=== PATIENT | female | born 1990 | race Caucasian/White ===

== ENCOUNTER 2022-07-02 16:16 | Emergency (ER) | payer SELFPAY ==
[2022-07-02 16:34] VITALS: BP 132/87; PULSE 57; RESP 16; TEMP 36.6; O2SAT 98
[2022-07-02 17:59] LABS: Influenza A QL RT-PCR Negative (Negative); Influenza B QL RT-PCR Negative (Negative); SARS-CoV-2 RNA PCR Negative
[2022-07-02 19:03] VITALS: PULSE 95; RESP 16; TEMP 36.8; O2SAT 98
--- NOTE | 2022-07-02 19:43 | ED.GENADULT ---
HPI - General Adult General Chief complaint: Upper Respiratory Infection Stated complaint: ear pain, neck pain, fever Time Seen by Provider: 07/02/22 19:30 Source: RN notes reviewed History of Present Illness HPI narrative: Patient presents emergency room from home for upper respiratory infection. Patient states symptoms began 4 days ago. States that she has been having bilateral ear pain as well as rhinorrhea sore throat and a nonproductive cough she states subjective fevers yesterday but none today she denies any chest pain shortness of breath abdominal pain nausea vomiting diarrhea or any other symptoms. States that she took Tylenol yesterday but nothing today she denies any chance of Related Data Allergies Allergy/AdvReac Type Severity Reaction Status Date / Time No Known Allergies Allergy Verified 07/02/22 19:03 Review of Systems Review of Systems: Gen.: Report subjective fever Eyes: Denies eye pain or visual change ENT: See HPI Respiratory: Denies shortness of breath reports cough CV: Denies chest pain or palpitations GI: Denies abdominal pain nausea, emesis or diarrhea denies b Musculoskeletal: Denies back pain or muscle pain Neuro: Denies numbness, tingling, weakness or focal weakness Skin: Denies rash Except as documented, all other systems reviewed and negative [facility] Past Medical History Medical History (Updated 07/02/22 @ 20:26 by Tom Mccabe DO) Patient denies significant medical history Social History Social History (Updated 07/02/22 @ 19:44 by Tom Mccabe DO) Smoking status: Never smoker Exam Narrative: APPEARANCE: No acute distress, nontoxic, resting in bed EYES: EOMI HEENT: Normocephalic, atraumatic, TMs clear to station bilaterally, nares patent oral mucosa moist erythema posterior pharynx and bilateral tonsils with white exudate over bilateral tonsils uvula midline no trismus RESPIRATORY: No respiratory distress Clear to auscultation bilaterally with no rhonchi wheezing or rales. CARDIOVASCULAR: Regular rate and rhythm without murmurs rubs or gallops. ABDOMINAL: Soft, nontender, nondistended, no rebound or guarding MUSCULOSKELETAl: Moves all extremities. No clubbing, cyanosis or edema. NEURO: Awake and alert. Following commands, speech normal, no focal deficits SKIN:: Warm, dry. No rashes lesions or abrasions PSYCHIATRIC: Normal affect/mood, Course Course Emergency Course: Discussed with patient results of workup and diagnosis. Discussed need for follow-up with primary care, proper use of medication, and reasons to return to the emergency department. Patient understands and agrees to current treatment plan Vital Signs Vital signs: Vital Signs Temperature 97.8 F 07/02/22 16:34 Pulse Rate 57 L 07/02/22 16:34 Respiratory Rate 16 07/02/22 16:34 Blood Pressure 132/87 07/02/22 16:34 Pulse Oximetry 98 07/02/22 16:34 Oxygen Delivery Room Air 07/02/22 16:34 Temperature 98.2 F 07/02/22 19:03 Pulse Rate 95 07/02/22 19:03 Respiratory Rate 16 07/02/22 19:03 Blood Pressure 132/87 07/02/22 16:34 Pulse Oximetry 98 07/02/22 19:03 Oxygen Delivery Room Air 07/02/22 16:34 Medical Decision Making Vital Signs Vital Signs: Vital Signs Temperature 97.8 F 07/02/22 16:34 Pulse Rate 57 L 07/02/22 16:34 Respiratory Rate 16 07/02/22 16:34 Blood Pressure 132/87 07/02/22 16:34 Pulse Oximetry 98 07/02/22 16:34 Oxygen Delivery Room Air 07/02/22 16:34 Temperature 98.2 F 07/02/22 19:03 Pulse Rate 95 07/02/22 19:03 Respiratory Rate 16 07/02/22 19:03 Blood Pressure 132/87 07/02/22 16:34 Pulse Oximetry 98 07/02/22 19:03 Oxygen Delivery Room Air 07/02/22 16:34 Lab Data Labs: Lab Results 07/02/22 Range/Units 16:40 Influenza A (RT-PCR) Negative (Negative) Influenza B (RT-PCR) Negative (Negative) SARS-CoV-2 RNA (RT-PCR) Negative Strep Screen P
[2022-07-02] MEDS: IBUPROFEN 600 MG TABLET PO (20:03)
== END 2022-07-02 20:52 | disposition home or self-care (01) ==
PROVIDERS: Emergency Medicine; Emergency Provider Emergency Medicine; PCP Family Medicine
DX: J02.0 Streptococcal pharyngitis (principal); Z20.822 Contact with and (suspected) exposure to COVID-19
CPT/HCPCS: 87636; 87880; 99283; A9270

== ENCOUNTER 2023-05-01 00:49 | Emergency (ER) | payer BC, SELFPAY ==
--- NOTE | ~2023-05-01 | XR_ITS ---
XR elbow LT min 3V DATE: 05/01/2023 01:10 INDICATION: Fall down stairs. Pain when straightening elbow. TECHNIQUE: 3 views COMPARISON: None FINDINGS: No fracture or dislocation or joint effusion, periosteal reaction or bone destruction is de tected. IMPRESSION: Negative Reviewed, dictated and finalized at location A. IMPRESSION: Negative
[2023-05-01 00:53] VITALS: BP 118/77; PULSE 102; RESP 16; TEMP 36.4; O2SAT 98
--- NOTE | 2023-05-01 03:47 | PC.NURSE ---
Pt seen getting in to an [employer] and riding away
== END 2023-05-01 04:22 | disposition left against medical advice (07) ==
LOC: ANHED 03:58
PROVIDERS: Emergency Provider Emergency Medicine; PCP Family Medicine
DX: M79.602 Pain in left arm (principal)
CPT/HCPCS: 73080; 99199

== ENCOUNTER 2023-05-03 23:12 | Emergency (ER) | payer BC, SELFPAY ==
[2023-05-03 23:54] VITALS: BP 145/100; PULSE 78; RESP 16; TEMP 36.8; O2SAT 99
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
== END 2023-05-04 01:33 | disposition home or self-care (01) ==
PROVIDERS: Emergency Provider Physician Assistant; PCP Family Medicine
DX: S59.902A Unspecified injury of left elbow, initial encounter (principal); W13.8XXA Fall from, out of or through other building or structure, initial encounter
CPT/HCPCS: 99282; A4565

== ENCOUNTER 2023-11-15 15:47 | Emergency (ER) | payer BC, SELFPAY ==
[2023-11-15 16:02] VITALS: BP 119/86; PULSE 97; RESP 18; TEMP 36.2; O2SAT 100
--- NOTE | 2023-11-15 16:07 | ED.URI ---
HPI - URI/Sore Throat General Chief Complaint: Upper Respiratory Infection Stated Complaint: cough,weak Time Seen by Provider: 11/15/23 15:50 Source: patient Mode of arrival: ambulatory Limitations: no limitations History of Present Illness HPI Narrative: Kellen is a 33-year-old female patient presenting to the clinic today with complaints of cough and weakness x3 days. She reports she feels as though she has no energy. Denies any shortness of breath or chest pain. No fever, chills, or body aches. Cough is nonproductive. Did at home COVID test yesterday and was negative. MD elicited complaint: cough and nasal congestion Related Data Home Medications Medication Instructions Recorded Confirmed No Home Medications 11/15/23 11/15/23 Allergies Allergy/AdvReac Type Severity Reaction Status Date / Time No Known Allergies Allergy Verified 05/04/23 01:04 Review of Systems Review of Systems: Pertinent positives per HPI. Patient denies any fever, chills, rash, headache, visual changes, dizziness, shortness of breath, chest pain, palpitations, nausea, vomiting, diarrhea, constipation, abdominal pain, or any urinary issues. [facility] Past Medical History Medical History Patient denies significant medical history Social History Social History Smoking status: Never smoker Comments At the time of my signature, I reviewed and agree with the nursing past medical, surgical, social, and family history. There is no relevant family history pertinent to the patient complaint. Exam Narrative: General: Well-developed, well nourished, in no apparent distress Head: Normocephalic, atraumatic Eyes: Pupils equally round and reactive to light bilaterally, EOM intact, sclera and conjunctive clear, no discharge, lids normal Ears: TMs intact and clear, ear canals clear, no drainage, grossly hearing normal. Nose: Nares patent, clear nasal discharge, no inflammation, no sinus tenderness. Mouth: Oral pharynx without lesions or masses, good dentition, MMM. Neck: Supple, trachea midline, no enlargement of anterior or posterior cervical nodes, no thyroid masses or goiter palpable. Cardio: Regular rate and rhythm, s1 and s2 normal, no murmur appreciated. Resp: Clear to auscultation bilaterally, no rhonchi, rales, wheezing or rubs Course Course Emergency Course: Portions of this record may have been created with voice recognition software. Level of Care: Express Care Visit Vital Signs Vital signs: Vital signs reviewed MDM - URI/Sore Throat MDM Narrative Medical decision making narrative: At the time of visit patient is resting comfortably on the exam table. Patient appears to be nontoxic. Labs: COVID and influenza testing was performed Plan: Supportive measures were discussed with the patient and they voiced understanding discharge instructions and agrees to treatment plan. Return precautions reviewed Differential Diagnosis Differential diagnosis: Likely upper respiratory infection, otitis media, sinusitis, viral infection, bronchitis, influenza, pharyngitis and other (COVID) Discharge Plan Discharge Clinical Impression: Upper respiratory infection, Acute cough, Acute viral syndrome Patient Disposition: Home, Self-Care Condition: Stable Instructions: Antibiotic Form, Viral Syndrome (ED), Upper Respiratory Infection (ED), Acute Cough (ED), Antitussive/Decongestant/Expectorant (By mouth) Additional Instructions: COVID and influenza testing was negative in the clinic today. I suspect you have URI/acute cough/viral syndrome. May take DayQuil/NyQuil for cold/flu symptoms-take will has a cough expectorant and NyQuil has a cough suppressant If you do not wish to take DayQuil/NyQuil for symptoms he may take Mucinex DM Increase fluids and stay well hydrated Tylenol/motrin for pain/fe
== END 2023-11-15 16:50 | disposition home or self-care (01) ==
PROVIDERS: Emergency Provider Nurse Practitioner Family
DX: J06.9 Acute upper respiratory infection, unspecified (principal); R05.1 Acute cough; B34.9 Viral infection, unspecified; Z20.822 Contact with and (suspected) exposure to COVID-19
CPT/HCPCS: 87426; 87804; 99213; G0463

== ENCOUNTER 2023-12-30 15:12 | Emergency (ER) | payer BC, SELFPAY ==
[2023-12-30 15:13] VITALS: BP 129/92; PULSE 115; RESP 18; TEMP 36.6; O2SAT 97
--- NOTE | 2023-12-30 16:26 | ED.SKABFB ---
HPI - Skin/Abscess/Foreign Bdy General Chief complaint: Skin/Abscess/Foreign Body Stated complaint: near groin abcess Time Seen by Provider: 12/30/23 15:56 History of Present Illness HPI narrative: 33-year-old female presents to the emergency room for evaluation of painful mass in her right groin area this been present for 3 days. 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 Patient states that she has been placing Pred on the area without improvement. Patient denies any discharge from the area. Related Data Allergies Allergy/AdvReac Type Severity Reaction Status Date / Time No Known Allergies Allergy Verified 12/30/23 15:15 Review of Systems Review of Systems: ROS unremarkable except for stated in the HPI PMFSH Past Medical History Medical History Patient denies significant medical history Social History Social History Smoking status: Never smoker Exam Narrative: GENERAL: Well-appearing, well-nourished, no physical limitations, and in no acute distress. HEAD: Normocephalic, atraumatic. EYES: Conjunctivae normal, PERRLA and EOMI. CHEST: Clear to auscultation. No respiratory distress. No wheezes rales or rhonchi. HEART: Regular rate and rhythm. No murmur heard. Normal peripheral pulses. ABDOMEN: Soft, nontender, nondistended, normal active bowel sounds. EXTREMITIES: Normal range of motion. No edema. No clubbing or cyanosis SKIN: 4 cm erythematous indurated mass to right inguinal area, no noted discharge NEURO: No focal deficits. Alert and oriented x3. MAEW. CN's II-XI intact bilaterally, normal gait PSYCH: Cooperative. Normal mood and affect. Course Vital Signs Vital signs: Vital Signs Temperature 36.6 C 12/30/23 15:13 Pulse Rate 115 H 12/30/23 15:13 Respiratory Rate 18 12/30/23 15:13 Blood Pressure 129/92 H 12/30/23 15:13 Pulse Oximetry 97 12/30/23 15:13 Oxygen Delivery Room Air 12/30/23 15:13 Temperature 36.6 C 12/30/23 15:13 Pulse Rate 115 H 12/30/23 15:13 Respiratory Rate 18 12/30/23 15:13 Blood Pressure 129/92 H 12/30/23 15:13 Pulse Oximetry 97 12/30/23 15:13 Oxygen Delivery Room Air 12/30/23 15:13 Discharge Plan Discharge Clinical Impression: Abscess of skin or subcutaneous tissue Patient Disposition: Home, Self-Care Condition: Stable Instructions: Antibiotic Form, Abscess (ED) Prescriptions: New doxycycline hyclate 100 mg capsule 100 mg PO DAILY Qty: 14 0RF Follow-up/Referrals: UNKNOWN,DOCTOR [Primary Care Provider] - Time of Disposition: 16:26
== END 2023-12-30 16:39 | disposition home or self-care (01) ==
PROVIDERS: Emergency Provider Nurse Practitioner Family
DX: L02.214 Cutaneous abscess of groin (principal)
CPT/HCPCS: 99283

== ENCOUNTER 2024-09-15 13:05 | Emergency (ER) | payer BC, SELFPAY ==
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
--- OUTSIDE RECORDS SUMMARY | 2024-09-15 13:08 | XMS_ITS | Referral Summary ---
Author Organization [facility] Address [address] [place] [address] Care Team Providers Care Athletic Monitor Name Role Phone Nicci Bravo MD Primary Care Prov ider Encounters Date Type Department Care Team Description 09/07/2024 Telephone Specialty Care [facility] Hand and Wrist [address] [facility] 4th Floor [address] [place] [address] Haroon Dc Scheduling Appointments 09/06/2024 Orders Only [facility] Orthopaedic Surgery [address] [place] [address] Medical Office Building 1 [address] [place] [address] Anant Norman MD Closed nondisplaced fracture of base of fifth metacarpal bone of right hand with routine healing, subsequent encounter (Primary Dx) 09/06/2024 Orders Only [facility] Orthopaedic Surgery [address] [place] [address] Medical Office Building 1 [address] [place] [address] Anant Norman MD Closed fracture of distal end of right radius with routine healing, unspecified fracture morphology, subsequent encounter (Primary Dx) 08/18/2024 Telephone [facility] Orthopaedic Surgery [address] [facility] 2nd Floor [address] [place] [address] Anant Norman MD 08/17/2024 6:17 PM INSTRUMENTATION TECH - 08/17/2024 10:00 PM INSTRUMENTATION TECH Emergency [facility] Emergency Department 1 [place] [address] Jamil Jones MD Closed fracture of right upper extremity with routine healing, subsequent encounter (Primary Dx) Discharge Disposition: Discharge to home or self care from Last 3 Months Allergies Active Allergy Reactions Criticality Noted Date Comments Methocarbamol Rash Medium 08/17/2024 Active Problems Problem Noted Date Diagnosed Date Subdural hematoma 08/20/2014 Social History Tobacco Use Types Packs/Day Years [...] on file Legal Sex Female 1:19 PM INSTRUMENTATION TECH Gender Identity Not on file Sexual Orientation Not on file Last Filed Vital Signs Vital Sign Reading Time Taken Comments Blood Pressure 139/88 08/17/2024 9:00 PM INSTRUMENTATION TECH Pulse 72 08/17/2024 9:00 PM INSTRUMENTATION TECH Temperature 37.1 ??C (98.8 ??F) 08/17/2024 3:09 PM CS T Respiratory Rate 20 08/17/2024 9:00 PM INSTRUMENTATION TECH Oxygen Saturation 97% 08/17/2024 9:00 PM INSTRUMENTATION TECH Inhaled Oxygen Concentration - - Weight 77.1 kg (170 lb) 08/17/2024 3:09 PM INSTRUMENTATION TECH Height 165.1 cm (5' 5 ) 08/17/2024 3:09 PM INSTRUMENTATION TECH Body Mass Index 28.29 08/17/2024 3:09 PM INSTRUMENTATION TECH Plan of Treatment Not on file Procedures Procedure Name Priority Date/Time Associated Diagnosis Comments XR WRIST RIGHT 2 VIEWS ED 08/17/2024 9:29 PM INSTRUMENTATION TECH XR RADIUS ULNA RIGHT 2 VIEWS ED 08/17/2024 7:00 PM INSTRUMENTATION TECH XR HAND RIGHT 3 OR MORE VIEWS ED 08/17/2024 7:00 PM INSTRUMENTATION TECH from Last 3 Months Results * XR Wrist Right 2 Views (08/17/2024 9:29 PM INSTRUMENTATION TECH) Anatomical Region Laterality Modality Upper Extremities, Wrist Right Compute d Radiography 08/17/2024 10:4 0 PM INSTRUMENTATION TECH Impressions 08/18/2024 9:03 AM INSTRUMENTATION TECH Patient is imaged in a splint which [...] Richard Oleary M.D. Narrative 08/18/2024 9:03 AM INSTRUMENTATION TECH EXAMINATION: XR WRIST RIGHT 2 VIEWS HISTORY: [...] Ulna Right 2 Views (08/17/2024 7:00 PM INSTRUMENTATION TECH) Anatomical Region Laterality Modality Upper Extremities, Forearm Right Compu fer Radiography 08/17/2024 7:11 PM INSTRUMENTATION TECH Impressions 08/17/2024 7:14 PM INSTRUMENTATION TECH 1. ??Mildly displaced intra-articular distal radial metadiaphyseal [...] Kofi Tello M.D. Narrative 08/17/2024 7:14 PM INSTRUMENTATION TECH EXAM: XR RADIUS ULNA RIGHT 2 VIEWS, [...] agrees with it. Electronically signed by: Kofi Eddie Short, M.D. us Prerak Dimitris Gomes MD IMG XR PROCEDURES Kelsie l Result * XR Hand Right 3 or More Views (08/17/2024 7:00 PM INSTRUMENTATION TECH) Anatomical Region Laterality Modality Upper Extremities, Hand Right Computed Radiography 08/17/2024 7:11 PM INSTRUMENTATION TECH Impressions 08/17/2024 7:14 PM INSTRUMENTATION TECH 1. ??Mildly displaced intra-articular distal radial metadiaphyseal [...] Kofi Tello M.D. Narrative 08/17/2024 7:14 PM INSTRUMENTATION TECH EXAM: XR RADIUS ULNA RIGHT 2 VIEWS, [...] l Result from Last 3 Months Insurance [facility] Care Teams Athletic Monitor Relationship Specialty Start Date End Date Nicci Bravo MD PCP - General 02/01/19
[2024-09-15 13:29] VITALS: BP 142/90; PULSE 86; RESP 16; TEMP 36.6; O2SAT 100
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
--- NOTE | 2024-09-15 20:17 | PC.NURSE ---
patient was called and no answer
--- NOTE | 2024-09-15 20:41 | PC.NURSE ---
patient named called to triage with no answer.
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
--- OUTSIDE RECORDS SUMMARY | 2024-09-15 20:45 | XMS_ITS | Referral Summary ---
Author Organization [facility] Address [address] [place] [address] Care Team Providers Care Complaint Supervisor Name Role Phone Nicci Bravo MD Primary Care Prov ider Encounters Date Type Department Care Team Description 09/07/2024 Telephone [facility] Hand and Wrist [address] [place] [address] Haroon Dc Scheduling Appointments 09/06/2024 Orders Only [facility] Orthopaedic Surgery [address] [place] [address] Medical Office Building [address] [place] [address] Anant Norman MD Closed nondisplaced fracture of base of fifth metacarpal bone of right hand with routine healing, subsequent encounter (Primary Dx) 09/06/2024 Orders Only [facility] Orthopaedic Surgery [address] [place] [address] Medical Office Building [address] [place] [address] Anant Norman MD Closed fracture of distal end of right radius with routine healing, unspecified fracture morphology, subsequent encounter (Primary Dx) 08/18/2024 Telephone [facility] Orthopaedic Surgery [address] [facility] 2[address] [place] [address] Anant Norman MD 08/17/2024 6:17 PM AIRCRAFT FUSELAGE FRAMER - 08/17/2024 10:00 PM AIRCRAFT FUSELAGE FRAMER Emergency [facility] Emergency Department [address] [place] [address] Jamil Jones MD Closed fracture of right [...] on file Legal Sex Female 1:19 PM AIRCRAFT FUSELAGE FRAMER Gender Identity Not on file Sexual Orientation Not on file Last Filed Vital Signs Vital Sign Reading Time Taken Comments Blood Pressure 139/88 08/17/2024 9:00 PM AIRCRAFT FUSELAGE FRAMER Pulse 72 08/17/2024 9:00 PM AIRCRAFT FUSELAGE FRAMER Temperature 37.1 ??C (98.8 ??F) 08/17/2024 3:09 PM CS T Respiratory Rate 20 08/17/2024 9:00 PM AIRCRAFT FUSELAGE FRAMER Oxygen Saturation 97% 08/17/2024 9:00 PM AIRCRAFT FUSELAGE FRAMER Inhaled Oxygen Concentration - - Weight 77.1 kg (170 lb) 08/17/2024 3:09 PM AIRCRAFT FUSELAGE FRAMER Height 165.1 cm (5' 5 ) 08/17/2024 3:09 PM AIRCRAFT FUSELAGE FRAMER Body Mass Index 28.29 08/17/2024 3:09 PM AIRCRAFT FUSELAGE FRAMER Plan of Treatment Not on file Procedures Procedure Name Priority Date/Time Associated Diagnosis Comments XR WRIST RIGHT 2 VIEWS ED 08/17/2024 9:29 PM AIRCRAFT FUSELAGE FRAMER XR RADIUS ULNA RIGHT 2 VIEWS ED 08/17/2024 7:00 PM AIRCRAFT FUSELAGE FRAMER XR HAND RIGHT 3 OR MORE VIEWS ED 08/17/2024 7:00 PM AIRCRAFT FUSELAGE FRAMER from Last 3 Months Results * XR Wrist Right 2 Views (08/17/2024 9:29 PM AIRCRAFT FUSELAGE FRAMER) Anatomical Region Laterality Modality Upper Extremities, Wrist Right Compute d Radiography 08/17/2024 10:4 0 PM AIRCRAFT FUSELAGE FRAMER Impressions 08/18/2024 9:03 AM AIRCRAFT FUSELAGE FRAMER Patient is imaged in a splint which [...] Richard Oleary M.D. Narrative 08/18/2024 9:03 AM AIRCRAFT FUSELAGE FRAMER EXAMINATION: XR WRIST RIGHT 2 VIEWS HISTORY: [...] Ulna Right 2 Views (08/17/2024 7:00 PM AIRCRAFT FUSELAGE FRAMER) Anatomical Region Laterality Modality Upper Extremities, Forearm Right Compu fer Radiography 08/17/2024 7:11 PM AIRCRAFT FUSELAGE FRAMER Impressions 08/17/2024 7:14 PM AIRCRAFT FUSELAGE FRAMER 1. ??Mildly displaced intra-articular distal radial metadiaphyseal [...] Kofi Tello M.D. Narrative 08/17/2024 7:14 PM AIRCRAFT FUSELAGE FRAMER EXAM: XR RADIUS ULNA RIGHT 2 VIEWS, [...] 3 or More Views (08/17/2024 7:00 PM AIRCRAFT FUSELAGE FRAMER) Anatomical Region Laterality Modality Upper Extremities, Hand Right Computed Radiography 08/17/2024 7:11 PM AIRCRAFT FUSELAGE FRAMER Impressions 08/17/2024 7:14 PM AIRCRAFT FUSELAGE FRAMER 1. ??Mildly displaced intra-articular distal radial metadiaphyseal [...] Kofi Tello M.D. Narrative 08/17/2024 7:14 PM AIRCRAFT FUSELAGE FRAMER EXAM: XR RADIUS ULNA RIGHT 2 VIEWS, [...] metacarpal base fracture. . Dictated by: Avinash Lopze MD The radiology attending physician has personally reviewed this study, and had reviewed and/or edited this written report and agrees with it. Electronically signed by: Kofi Tello M.D. us Prerak Dimitris Gomes MD IMG XR PROCEDURES Kelsie l Result from Last 3 Months Insurance [facility] [employer] Care Teams Complaint Supervisor Relationship Specialty Start Date End Date Nicci Bravo MD PCP - General 02/01/19
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
== END 2024-09-15 22:08 | disposition left against medical advice (07) ==
PROVIDERS: Emergency Provider Physician Assistant
DX: S62.101D Fracture of unspecified carpal bone, right wrist, subsequent encounter for fracture with routine healing (principal); V49.9XXD Car occupant (driver) (passenger) injured in unspecified traffic accident, subsequent encounter
CPT/HCPCS: 99281